=== PATIENT | female | born 1975 | race Caucasian/White ===

== ENCOUNTER 2017-08-29 13:08 | Day surgery (SDC) | payer OTHER ==
[~2017-08-29] VITALS: Ht 167.6 cm; Wt 93.3 kg
[~2017-08-29 13:08] MED LIST: BUDE6HFA INH; GABA-526 PO; GEMF600T60 PO; LISI10TA2 PO; METF500T4 PO; OMEP20CA16 PO; OXYC15TA PO
[2017-08-29 13:31] VITALS: Ht 167.6 cm; Wt 93.3 kg
[2017-08-29 14:05] VITALS: BP 137/78; PULSE 56; RESP 17
[2017-08-29] MEDS ORDERED: MIDAZOLAM 1 MG/ML 2 ML INJ ONE (14:57)
[2017-08-29] MEDS ORDERED: FENTAnyl 50 MCG/ML VIAL ONE (14:57)
[2017-08-29] MEDS ORDERED: PROPOFOL 20 ML ONE ×2 (14:57→16:18)
--- NOTE | 2017-08-29 15:46 | SIPON ---
Date/Time of Note Date/Time of Note DATE: 08/29/17 TIME: 15:45 Operative Report Preoperative Diagnosis Blood per rectum Postoperative Diagnosis Blood per rectum Operation/Procedure Performed Colonoscopy Surgeon Dean signature line office administrative assistant v Anesthesia: MAC Estimated blood loss: none Transfusion Required none Specimen None Grafts/Implants none Complications none YOVANI VALENTINE M.D. Aug 29, 2017 15:46
--- NOTE | 2017-08-29 15:46 | SIPON ---
Date/Time of Note Date/Time of Note DATE: 08/29/17 TIME: 15:45 Operative Report Preoperative Diagnosis Blood per rectum Postoperative Diagnosis Blood per rectum Operation/Procedure Performed Colonoscopy Surgeon Dean signature line internal medicine physician assistant v Anesthesia: MAC Estimated blood loss: none Transfusion Required none Specimen None Grafts/Implants none Complications none YOVANI VALENTINE M.D. Aug 29, 2017 15:46
--- NOTE | 2017-08-29 15:46 | SIPON ---
Date/Time of Note Date/Time of Note DATE: 08/29/17 TIME: 15:45 Operative Report Preoperative Diagnosis Blood per rectum Postoperative Diagnosis Blood per rectum Operation/Procedure Performed Colonoscopy Surgeon Dean signature line dental assisting instructor v Anesthesia: MAC Estimated blood loss: none Transfusion Required none Specimen None Grafts/Implants none Complications none YOVANI VALENTINE M.D. Aug 29, 2017 15:46
[2017-08-29 16:10] VITALS: BP 156/96; RESP 14
--- NOTE | 2017-08-29 17:18 | OPR ---
DATE OF OPERATION: 08/29/2017 OPERATION PERFORMED: Colonoscopy. PREOPERATIVE DIAGNOSIS: Blood per rectum. POSTOPERATIVE DIAGNOSIS: Blood per rectum. SURGEON: Carlos Kwan MD ANESTHESIOLOGIST: Vicki Goldstein MD ANESTHESIA: MAC. POSITION: Left lateral decubitus. INDICATIONS: A 42-year-old woman who I had seen in the office for internal hemorrhoids and bleeding. Given the patient's age and symptoms, I recommended a colonoscopy. I discussed the risks and benefits, including bleeding, infection, damage to surrounding structures, perforation. Patient agreed to the procedure, and we went to the GI suite. OPERATIVE PROCEDURE: After obtaining consent, the patient was brought to the GI suite. After induction of anesthesia by the anesthesiologist, patient was gently placed in left lateral decubitus position. The pressure points were carefully padded. I did a digital rectal exam, which was unremarkable. I then placed a lubricated Olympus colonoscope in the patient's anus and navigated it carefully to the patient's cecum. The cecum was identified by the appendiceal orifice and the ileocecal valve. The prep was unsatisfactory, as I found it safe to get to the cecum. On retraction, there were multiple large stools and pools of green fluid. Despite suction and irrigation, I could not see the entirety of the colon. However, there were no obvious lesions seen. The scope was removed, and the procedure was terminated. The patient tolerated the procedure well. The patient was transferred to the recovery room in good condition. I will see patient in office regarding followup colonoscopy with a different prep. Dictated By: Carlos Kwan MD /[email or web address] /Document#: [id number]
== END 2017-08-29 16:18 | disposition home or self-care (01) ==
LOC: GIL 13:08
PROVIDERS: ATTEND Surgery
DX: K62.5 Hemorrhage of anus and rectum (principal); E78.5 Hyperlipidemia, unspecified; E11.9 Type 2 diabetes mellitus without complications; I10 Essential (primary) hypertension; Z88.1 Allergy status to other antibiotic agents
CPT/HCPCS: 45378; 82962; 84703; J2250; J3010; Z7610

== ENCOUNTER 2017-12-21 12:39 | Day surgery (SDC) | END 2017-12-21 15:15 | disposition home or self-care (01) ==

== ENCOUNTER 2018-11-08 11:20 | Day surgery (SDC) | payer OTHER ==
[~2018-11-08] VITALS: Ht 157.5 cm; Wt 98.4 kg
[~2018-11-08 11:20] MED LIST changes: -GABA-526 PO; -GEMF600T60 PO; +GEMF600T8 PO; +METF500T24 PO; -METF500T4 PO
[2018-11-08 12:28] VITALS: Ht 157.5 cm; Wt 98.4 kg
--- NOTE | 2018-11-08 12:47 | PREAC ---
Date/Time of Note Date/Time of Note DATE: 11/08/18 TIME: 12:46 Anesthesia Eval and Record Evaluation Time Pre-Procedure Interview DATE: 11/08/18 TIME: 12:46 Age 43 Sex female NPO: 8 hrs Preoperative diagnosis GERD Planned procedure EGD Past Medical History Past Medical History: Includes Cardio: HTN Endo: Diabetes Pulm: Asthma Surgery & Anesthesia Issues No known issue Meds Anticoagulation: No Beta Uli within 24 hr: No Reason Beta Uli not given: Pt. not on B-Uli Reported Medications Budesonide-Formoterol Fumarate* (Symbicort*) 160-4.5 Hfa.aer.ad, 1 PUFF INH PRN for SHORTNESS OF BREATH, #10 08/30/16 Omeprazole* (Omeprazole*) 20 Mg Capsule.dr, 20 MG PO DAILY, #30 CAP 05/10/16 Oxycodone Hcl* (IR) (Oxycodone Hcl*) 15 Mg Tablet, 15 MG PO Q8H PRN for PAIN, TAB 05/09/16 Gemfibrozil* (Gemfibrozil*) 600 Mg Tablet, 600 MG PO BID, TAB 06/23/15 Metformin Hcl* (Metformin Hcl*) 500 Mg Tablet, 500 MG PO WITH BREAKFAST, TAB 06/23/15 Lisinopril* (Lisinopril*) 10 Mg Tablet, 10 MG PO DAILY, TAB 06/23/15 Meds reviewed: Yes Allergies Coded Allergies: carisoprodol (Verified Allergy, Unknown, 12/21/17) clindamycin (Verified Allergy, Unknown, 12/21/17) vancomycin (Verified Allergy, Unknown, 12/21/17) Allergies Reviewed: Yes Labs/Studies Labs Reviewed: Reviewed by anesthesiologist test: Negative Studies: ECG (n/a), CXR (n/a) Pre-procedure Exam Airway: Adequate mouth opening Mallampati: Mallampati I Teeth: Normal Lung: Normal Heart: Normal ASA Physical Status ASA physical status: 2 Emergency: None Planned Anesthetic General/MAC: MAC Planned Pain Management Parenteral pain med Pre-operative Attestations Prior to commencing anesthesia and surgery, the patient was re-evaluated, there was verification of: *The patient's identity *The results of appropriate recent lab work and preoperative vital signs *The above evaluation not changing prior to induction *Anesthetic plan, risk benefits, alternative and complications discussed with patient/family; questions answered; patient/family understands, accepts and wishes to proceed. JG DEUTSCH MD Nov 08, 2018 12:47
[2018-11-08] MEDS ORDERED: PROPOFOL 20 ML ONE (13:00)
[2018-11-08] MEDS ORDERED: FENTAnyl 50 MCG/ML VIAL ONE (13:00)
[2018-11-08 13:53] VITALS: BP 129/74; RESP 14
--- NOTE | 2018-11-08 17:13 | PAC ---
Date/Time of Note Date/Time of Note DATE: 11/08/18 TIME: 17:13 Post-Anesthesia Notes Post-Anesthesia Note Last documented vital signs Vital Signs Date Temp Pulse Resp B/P (MAP) Pulse Ox O2 O2 Flow FiO2 Time Delivery Rate 11/08/18 98 74 14 129/74 97 Room Air 13:53 (92) Activity: WNL Respiratory function: WNL Cardiovascular function: WNL Mental status: Baseline Pain reasonably controlled: Yes Hydration appropriate: Yes Nausea/Vomiting absent: No JG DEUTSCH MD Nov 08, 2018 17:13
== END 2018-11-08 15:18 | disposition home or self-care (01) ==
LOC: GIL 11:20
PROVIDERS: ATTEND Internal Medicine Gastroenterology
DX: K44.9 Diaphragmatic hernia without obstruction or gangrene (principal); K21.9 Gastro-esophageal reflux disease without esophagitis; I10 Essential (primary) hypertension; E11.9 Type 2 diabetes mellitus without complications; J45.909 Unspecified asthma, uncomplicated
CPT/HCPCS: 43239; 82962; 84703; 88305; J3010; Z7610

== ENCOUNTER 2019-05-08 08:54 | Inpatient (IN) | payer OTHER ==
[~2019-05-08] VITALS: Ht 160 cm; Wt 101.5 kg
[2019-05-08] VITALS (40 sets, daily range): BP systolic 119–161; BP diastolic 65–120; PULSE 72–112; RESP 11–28; Ht 160 cm; Wt 101.5 kg
[~2019-05-08 08:54] MED LIST changes: +CEFAZOLIN 2 GM/50 ML (PMX) 50 ML IVPB ONE; +CEFAZOLIN 2 GM/50 ML (PMX) 50 ML IVPB SCH
[2019-05-08] MEDS ORDERED: METF500T24 PO (09:43)
[2019-05-08] MEDS ORDERED: LISI10TA2 PO (09:43)
[2019-05-08] MEDS ORDERED: OMEP20CA16 PO (09:44)
[2019-05-08] MEDS ORDERED: GEMF600T8 PO (09:44)
[2019-05-08] MEDS ORDERED: OXYC15TA PO (09:45)
[2019-05-08] MEDS ORDERED: NORE0.35 PO (09:46)
[2019-05-08] MEDS ORDERED: ROCURONIUM 50 MG INJ ONE (10:50)
[2019-05-08] MEDS ORDERED: GLYCOPYRROLATE 0.4 MG INJ ONE (10:50)
[2019-05-08] MEDS ORDERED: PROPOFOL 20 ML ONE (10:51)
[2019-05-08] MEDS ORDERED: DEXAMETHASONE 4 MG/ML 5 ML INJ ONE (10:51)
[2019-05-08] MEDS ORDERED: ONDANSETRON 4 MG INJ ONE (10:51)
[2019-05-08] MEDS ORDERED: FENTAnyl 50 MCG/ML VIAL ONE ×3 (10:51→16:02)
[2019-05-08] MEDS ORDERED: MIDAZOLAM 1 MG/ML 2 ML INJ ONE ×2 (10:51→16:26)
[2019-05-08] MEDS ORDERED: CEFAZOLIN 1 GM INJ ONE (10:51)
[2019-05-08] MEDS ORDERED: NEOSTIGMINE 3 MG/3 ML SYRINGE ONE (10:51)
[2019-05-08] MEDS ORDERED: SOD CHLORIDE 0.9% 1,000 ML IV SCH (11:00)
--- NOTE | 2019-05-08 11:28 | PREAC ---
Date/Time of Note Date/Time of Note DATE: 05/08/19 TIME: 11:26 Anesthesia Eval and Record Evaluation Time Pre-Procedure Interview DATE: 05/08/19 TIME: 11:26 Age 44 Sex female NPO: 8 hrs Preoperative diagnosis mechanical low back pain Planned procedure l5-s1 instrumented fusion Past Medical History Past Medical History: Includes Cardio: HTN, Dyslipidemia Endo: Diabetes GI: Morbid obesity Surgery & Anesthesia Issues No known issue Meds Anticoagulation: No Beta Uli within 24 hr: No Reason Beta Uli not given: Pt. not on B-Uli Reported Medications Norethindrone (Norethindrone) 0.35 Mg Tablet, 0.35 MG PO DAILY, TAB PT BROUGHT HER OWN 05/08/19 Oxycodone Hcl* (IR) (Oxycodone Hcl*) 15 Mg Tablet, 15 MG PO QID PRN for PAIN, TAB 05/08/19 Omeprazole* (Omeprazole*) 20 Mg Capsule.dr, 20 MG PO DAILY, #30 CAP 05/08/19 Gemfibrozil* (Gemfibrozil*) 600 Mg Tablet, 600 MG PO QAM, TAB 05/08/19 Metformin Hcl* (Metformin Hcl*) 500 Mg Tablet, 500 MG PO WITH BREAKFAST, #30 TAB 05/08/19 Lisinopril* (Lisinopril*) 10 Mg Tablet, 10 MG PO DAILY, #30 TAB 05/08/19 Discontinued Reported Medications Budesonide-Formoterol Fumarate* (Symbicort*) 160-4.5 Hfa.aer.ad, 1 PUFF INH PRN for SHORTNESS OF BREATH, #10 08/30/16 Omeprazole* (Omeprazole*) 20 Mg Capsule.dr, 20 MG PO DAILY, #30 CAP 05/10/16 Oxycodone Hcl* (IR) (Oxycodone Hcl*) 15 Mg Tablet, 15 MG PO Q8H PRN for PAIN, TAB 05/09/16 Gemfibrozil* (Gemfibrozil*) 600 Mg Tablet, 600 MG PO BID, TAB 06/23/15 Metformin Hcl* (Metformin Hcl*) 500 Mg Tablet, 500 MG PO WITH BREAKFAST, TAB 06/23/15 Lisinopril* (Lisinopril*) 10 Mg Tablet, 10 MG PO DAILY, TAB 06/23/15 Current Medications Cefazolin Sodium/ Dextrose 50 ml @ 100 mls/hr PRE-OP IVPB ; Start 05/08/19 at 06:00; Stop 05/08/19 at 19:00 Sodium Chloride 1,000 ml @ 0 mls/hr Q0M IV ; Start 05/08/19 at 11:00 Meds reviewed: Yes Allergies Coded Allergies: carisoprodol (Verified Allergy, Unknown, 05/08/19) clindamycin (Verified Allergy, Unknown, 05/08/19) vancomycin (Verified Allergy, Unknown, 05/08/19) Allergies Reviewed: Yes Labs/Studies Labs Reviewed: Reviewed by anesthesiologist Blood Bank Test 05/08/19 09:19 Blood Product Summary Counts test: Negative Studies: ECG (sinus shilpi), CXR (napd) Pre-procedure Exam Last vitals Vital Signs Date Temp Pulse Resp B/P (MAP) Pulse Ox O2 O2 Flow FiO2 Time Delivery Rate 05/08/19 97.9 80 16 119/65 97 Room Air 10:46 (83) Airway: Adequate mouth opening, Adequate thyromental dist Mallampati: Mallampati II Teeth: Normal Lung: Normal Heart: Normal ASA Physical Status ASA physical status: 3 Emergency: None Planned Anesthetic General/MAC: ETT Planned Pain Management Parenteral pain med Pre-operative Attestations Prior to commencing anesthesia and surgery, the patient was re-evaluated, there was verification of: *The patient's identity *The results of appropriate recent lab work and preoperative vital signs *The above evaluation not changing prior to induction *Anesthetic plan, risk benefits, alternative and complications discussed with patient/family; questions answered; patient/family understands, accepts and wishes to proceed. Ferny Rose M.D. May 08, 2019 11:28
[2019-05-08] MEDS ORDERED: FENTAnyl 50 MCG/ML VIAL IV PRN ×2 (11:30)
[2019-05-08] MEDS ORDERED: MEPERIDINE 25 MG INJ IV PRN (11:30)
[2019-05-08] MEDS ORDERED: IPRATROPIUM (NEB) 0.5 MG/2.5 ML AMP HHN PRN (11:30)
[2019-05-08] MEDS ORDERED: LABETALOL HCL 20MG INJ IV PRN (11:30)
[2019-05-08] MEDS ORDERED: EPHEDrine 25 MG/5 ML SYG IV PRN (11:30)
[2019-05-08] MEDS ORDERED: ONDANSETRON 4 MG INJ IV PRN (11:30)
[2019-05-08] MEDS ORDERED: MIDAZOLAM 1 MG/ML 2 ML INJ IV PRN (11:30)
[2019-05-08] MEDS ORDERED: TRIMETHOBENZAMIDE 100 MG/ML VIAL IM PRN (11:30)
[2019-05-08] MEDS ORDERED: DIPHENHYDRAMINE 50 MG INJ IV PRN ×2 (11:30→13:00)
[2019-05-08] MEDS ORDERED: HYDROmorphONE 1 MG/5 ML IV SYRINGE IV PRN ×3 (11:30)
[2019-05-08] MEDS ORDERED: OXYCODONE/ACETAMINOPHEN (5/325) TAB PO PRN ×2 (11:30)
[2019-05-08] MEDS ORDERED: hydrALAzine 20 MG INJ IV PRN (11:30)
[2019-05-08] MEDS ORDERED: ALBUTEROL 0.083% (NEB) 2.5 MG/3 ML AMP HHN PRN (11:30)
[2019-05-08] MEDS ORDERED: POLYMYXIN/BACITRACIN 1L IRRIG ONE (11:39)
[2019-05-08] MEDS ORDERED: BUPIVACAINE 0.5% (SDV) 30 ML INJ ONE (11:40)
[2019-05-08] MEDS ORDERED: SURGIFOAM POWDER 1 GM KIT ONE (11:40)
[2019-05-08] MEDS ORDERED: BUPIVACAINE 0.25%/EPI (SDV) 30 ML INJ ONE (11:40)
[2019-05-08] MEDS ORDERED: CA CHLORIDE 10% 10 ML SYRINGE ONE ×2 (11:41→14:51)
[2019-05-08] MEDS ORDERED: BUPIVACAINE 0.25% (MPF) 30 ML INJ ONE (11:44)
[2019-05-08] MEDS ORDERED: morphine 2 MG INJ IV STA ×2 (12:03→12:32)
--- NOTE | 2019-05-08 12:40 | HPN ---
Date/Time of Note Date/Time of Note DATE: 05/08/19 TIME: 12:40 Interval H&P Admission Note Pt. seen H&P reviewed: No system changes ANA CHAVEZ MD May 08, 2019 12:40
[2019-05-08] MEDS ORDERED: DIPHENHYDRAMINE 25 MG CAP PO PRN (13:00)
[2019-05-08] MEDS ORDERED: NALOXONE (0.4 MG/ML) INJ IV PRN (13:00)
[2019-05-08] MEDS ORDERED: HYDROCODONE/APAP (5/325) TAB PO PRN ×2 (13:00)
[2019-05-08] MEDS ORDERED: morphine 2 MG INJ IV PRN (13:00)
[2019-05-08] MEDS ORDERED: PROCHLORPERAZINE 10 MG TAB PO PRN (13:00)
[2019-05-08] MEDS ORDERED: CEPASTAT LOZENGE MT PRN (13:00)
[2019-05-08] MEDS ORDERED: ACETAMINOPHEN 325 MG TAB PO PRN (13:00)
[2019-05-08] MEDS ORDERED: BUPIVACAINE 0.25%/EPI (SDV) 30 ML INJ INJ ONE (13:56)
--- NOTE | 2019-05-08 15:30 | SIPON ---
Date/Time of Note Date/Time of Note DATE: 05/08/19 TIME: 15:21 conf#[id number] Operative Report Preoperative Diagnosis s/p right L5-S1 discectomy, 2015 L5-S1 deg disc disease and stenosis Left leg radiculopathy Postoperative Diagnosis same Operation/Procedure Performed L5-S1 revision decompression with instrumented fusion Surgeon see signature line medical assistant float Juany Rg, AKHIL Anesthesia: general Estimated blood loss: 50 - 100 ml's Transfusion Required none Specimen L5-S1 disc Grafts/Implants Spineway pedicle screws NEXXT apine INterbody cage Bone graft NuShiled PRP Complications none ANA CHAVEZ MD May 08, 2019 15:30
--- NOTE | 2019-05-08 15:36 | PAC ---
Date/Time of Note Date/Time of Note DATE: 05/08/19 TIME: 15:36 Post-Anesthesia Notes Post-Anesthesia Note Last documented vital signs Vital Signs Date Temp Pulse Resp B/P (MAP) Pulse Ox O2 O2 Flow FiO2 Time Delivery Rate 05/08/19 97.9 80 16 119/65 97 Room Air 10:46 (83) Activity: WNL Respiratory function: WNL Cardiovascular function: WNL Mental status: Baseline Pain reasonably controlled: Yes Hydration appropriate: Yes Nausea/Vomiting absent: Yes PARDEEP KILLIAN May 08, 2019 15:36
[2019-05-08] MEDS: FENTAnyl 50 MCG/ML VIAL IV PRN ×2 (15:45→16:47)
[2019-05-08] MEDS ORDERED: HYDROmorphONE 1 MG/5 ML IV SYRINGE IV ONE (16:25)
--- NOTE | 2019-05-08 16:28 | CONS ---
Assessment/Plan Assessment/Plan Hospital Course (Demo Recall) 44 yo female with ho hypertension and lumbago who is s/p L5-S1 revision decompression with instrumented fusion. We have been asked to follow along for medication co-management - Ok to continue her home medications through the post-operative period - Post-operative management otherwise per neurosurgery - DVT ppx - Pain control - PT/OT - Diet as tolerated Consultation Date/Type/Reason Admit Date/Time May 08, 2019 at 08:54 Date/Time of Note DATE: 05/08/19 TIME: 16:25 Hx of Present Illness 44 yo female POD0 for L5-S1 revision decompression with instrumented fusion We have been asked to provide medical co-management Patient currently in PACU, appears sedated but still complains of severe pain. Requesting addtional analgesia Not able to further asses medical problems at this time Constitutional: no complaints, improved Eyes: no complaints ENT: no complaints Respiratory: no complaints Cardiovascular: no complaints Gastrointestinal: no complaints Genitourinary: no complaints Musculoskeletal: no complaints Skin: no complaints Neurologic: no complaints Endocrine: no complaints Lymphatic: no complaints Psychological: no complaints, nl mood/affect Immunologic: no complaints Past Medical History Medical History: no pertinent history Home Meds Reported Medications Norethindrone (Norethindrone) 0.35 Mg Tablet, 0.35 MG PO DAILY, TAB PT BROUGHT HER OWN 05/08/19 Oxycodone Hcl* (IR) (Oxycodone Hcl*) 15 Mg Tablet, 15 MG PO QID PRN for PAIN, TAB 05/08/19 Omeprazole* (Omeprazole*) 20 Mg Capsule.dr, 20 MG PO DAILY, #30 CAP 05/08/19 Gemfibrozil* (Gemfibrozil*) 600 Mg Tablet, 600 MG PO QAM, TAB 05/08/19 Metformin Hcl* (Metformin Hcl*) 500 Mg Tablet, 500 MG PO WITH BREAKFAST, #30 TAB 05/08/19 Lisinopril* (Lisinopril*) 10 Mg Tablet, 10 MG PO DAILY, #30 TAB 05/08/19 Discontinued Reported Medications Budesonide-Formoterol Fumarate* (Symbicort*) 160-4.5 Hfa.aer.ad, 1 PUFF INH PRN for SHORTNESS OF BREATH, #10 08/30/16 Omeprazole* (Omeprazole*) 20 Mg Capsule.dr, 20 MG PO DAILY, #30 CAP 05/10/16 Oxycodone Hcl* (IR) (Oxycodone Hcl*) 15 Mg Tablet, 15 MG PO Q8H PRN for PAIN, TAB 05/09/16 Gemfibrozil* (Gemfibrozil*) 600 Mg Tablet, 600 MG PO BID, TAB 06/23/15 Metformin Hcl* (Metformin Hcl*) 500 Mg Tablet, 500 MG PO WITH BREAKFAST, TAB 06/23/15 Lisinopril* (Lisinopril*) 10 Mg Tablet, 10 MG PO DAILY, TAB 06/23/15 Medications Current Medications Cefazolin Sodium/ Dextrose 50 ml @ 100 mls/hr PRE-OP IVPB ; Start 05/08/19 at 06:00; Stop 05/08/19 at 19:00 Sodium Chloride 1,000 ml @ 0 mls/hr Q0M IV ; Start 05/08/19 at 11:00 Acetaminophen/ Hydrocodone Bitart ([place] (5/325)) 1 tab Q4H PRN PO .PAIN 1-5; Start 05/08/19 at 13:00 Acetaminophen/ Hydrocodone Bitart ([place] (5/325)) 2 tab Q4H PRN PO .PAIN 6-10; Start 05/08/19 at 13:00 Morphine Sulfate (morphine) 1 mg Q3 PRN IV .BREAKTHROUGH PAIN; Start 05/08/19 at 13:00 Cefazolin Sodium 50 ml @ 100 mls/hr Q8H IVPB ; Start 05/08/19 at 19:00; Stop 05/09/19 at 11:29 Ondansetron HCl (Zofran Inj) 4 mg Q6H PRN IV NAUSEA/VOMITING; Start 05/08/19 at 13:00 Prochlorperazine (Compazine) 10 mg Q6H PRN PO NAUSEA/VOMITING; Start 05/08/19 at 13:00 Docusate Sodium (Colace) 100 mg BID PO ; Start 05/08/19 at 21:00 Pantoprazole (Protonix Tab) 40 mg DAILY@06 PO ; Start 05/09/19 at 06:00 Acetaminophen (Tylenol Tab) 650 mg Q4H PRN PO CASTILLO OR TEMP GREATER THAN 101.3F; Start 05/08/19 at 13:00 Cyclobenzaprine HCl (Flexeril) 10 mg TID PRN PO .MUSCLE SPASMS; Start 05/08/19 at 13:00 Phenol (Cepastat Lozenge) 1 lozenge PRN PRN MT .SORE THROAT; Start 05/08/19 at 13:00 Diphenhydramine HCl (Benadryl) 25 mg Q6H PRN PO .ITCHING; Start 05/08/19 at 13:00 Diphenhydramine HCl (Benadryl) 25 mg Q6H PRN IV .ITCHING; Start 05/08/19 at 13:00 Naloxone HCl (Narcan) 0.2 mg Q2M PRN IV .RR 8 BREATHS/MIN OR LESS; Start 05/08/19 at 13:00 Allergies: Coded Allergies: carisoprodol (Verified Allergy, Unknown, 05/08/19) clindamycin (Verified Allergy, Unknown, 05/08/19) vancomycin (Verified Allergy, Unknown, 05/08/19) Past Surgical History Past Surgical Hx: no surgical history Social History Alcohol Use: none Smoking Status: Never smoker Drug Use: none Exam/Review of Systems Exam Vitals Vital Signs Date Temp Pulse Resp B/P (MAP) Pulse Ox O2 O2 Flow FiO2 Time Delivery Rate 05/08/19 74 12 158/85 100 Nasal 2.0 16:12 (109) Cannula 05/08/19 98.6 15:32 Constitutional: alert, oriented, well developed Psych: no complaints, nl mood/affect Head: normocephalic, atraumatic Eyes: nl conjunctiva, EOMI, nl lids, nl sclera, PERRL ENMT: nl external ears & nose, nl lips & teeth, nl nasal mucosa & septum Neck: supple, non-tender Respiratory: clear to auscultation, normal air movement Cardiovascular: regular rate and rhythm, nl pulses Gastrointestinal: soft, nl liver, spleen, non-tender Musculoskeletal: nl extremities to inspection, nl gait and stance Extremities: normal pulses Neurological: [employer]ILRO[employer]ER II-XII intact, nl mental status, nl speech, nl strength Skin: nl turgor; No rash or lesions Lymph: nl lymph nodes Results Results 24hrs Laboratory Tests Test 05/08/19 10:10 05/08/19 12:42 Bedside Glucose 128 99 Medications Medication Current Medications Cefazolin Sodium/ Dextrose 50 ml @ 100 mls/hr PRE-OP IVPB ; Start 05/08/19 at 06:00; Stop 05/08/19 at 19:00 Sodium Chloride 1,000 ml @ 0 mls/hr Q0M IV ; Start 05/08/19 at 11:00 Acetaminophen/ Hydrocodone Bitart ([place] (5/325)) 1 tab Q4H PRN PO .PAIN 1-5; Start 05/08/19 at 13:00 Acetaminophen/ Hydrocodone Bitart ([place] (5/325)) 2 tab Q4H PRN PO .PAIN 6-10; Start 05/08/19 at 13:00 Morphine Sulfate (morphine) 1 mg Q3 PRN IV .BREAKTHROUGH PAIN; Start 05/08/19 at 13:00 Cefazolin Sodium 50 ml @ 100 mls/hr Q8H IVPB ; Start 05/08/19 at 19:00; Stop 05/09/19 at 11:29 Ondansetron HCl (Zofran Inj) 4 mg Q6H PRN IV NAUSEA/VOMITING; Start 05/08/19 at 13:00 Prochlorperazine (Compazine) 10 mg Q6H PRN PO NAUSEA/VOMITING; Start 05/08/19 at 13:00 Docusate Sodium (Colace) 100 mg BID PO ; Start 05/08/19 at 21:00 Pantoprazole (Protonix Tab) 40 mg DAILY@06 PO ; Start 05/09/19 at 06:00 Acetaminophen (Tylenol Tab) 650 mg Q4H PRN PO CASTILLO OR TEMP GREATER THAN 101.3F; Start 05/08/19 at 13:00 Cyclobenzaprine HCl (Flexeril) 10 mg TID PRN PO .MUSCLE SPASMS; Start 05/08/19 at 13:00 Phenol (Cepastat Lozenge) 1 lozenge PRN PRN MT .SORE THROAT; Start 05/08/19 at 13:00 Diphenhydramine HCl (Benadryl) 25 mg Q6H PRN PO .ITCHING; Start 05/08/19 at 13:00 Diphenhydramine HCl (Benadryl) 25 mg Q6H PRN IV .ITCHING; Start 05/08/19 at 13:00 Naloxone HCl (Narcan) 0.2 mg Q2M PRN IV .RR 8 BREATHS/MIN OR LESS; Start 05/08/19 at 13:00 SATISH SNYDER MD May 08, 2019 16:28
[2019-05-08] MEDS ORDERED: HYDROmorphONE 1 MG/ML SYG ONE (17:02)
[2019-05-08] MEDS ORDERED: HYDROmorphONE 1 MG/ML SYG IV ONE (17:30)
[2019-05-08] MEDS: HYDROmorphONE 0.2 MG/ML PCA IV SCH ×2 (17:44→21:57)
--- NOTE | 2019-05-08 18:18 | OPR ---
DATE OF OPERATION: 05/08/2019 PREOPERATIVE DIAGNOSES: 1. Status post right L5-S1 microdiskectomy with decompression with recurrent stenosis. 2. Degenerative disk disease with back pain and left lower extremity radiating pain. POSTOPERATIVE DIAGNOSES: 1. Status post right L5-S1 microdiskectomy with decompression with recurrent stenosis. 2. Degenerative disk disease with back pain and left lower extremity radiating pain. OPERATION PERFORMED: 1. Revision decompression at the L5-S1 level. 2. Placement of pedicle screws at L5 and S1 bilaterally under biplanar fluoroscopy. 3. Decompression of the left L5-S1 above and beyond the need for fusion for the purpose of decompression as well. This was done by full facetectomy and foraminotomy. 4. Placement of interbody biomechanical device inside the L5-S1 level after complete diskectomy and preparation of endplates. 5. Decompression of the exiting L5 and traversing S1 nerve root. 6. Placement of bone graft into bilateral posterolateral gutters after high speed bur decortication. 7. Use of intraoperative microscope for microsurgical technique and microdissection. 8. Use of intraoperative fluoroscopy for localization and placement of instrumentation. 9. Use of intraoperative neuromonitoring. 10. Placement of epidural catheter for postop pain control and analgesia in the form of injection of 4 mL of 0.25% Marcaine and 100 mcg fentanyl. 11. Cosmetic wound closure of two 3 cm incisions. 12. Increased complexity secondary revision nature of surgery adding 1 hour to surgery to minimize risk of CSF nerve root injury which did not occur during the procedure. SURGEON: Milo Veloz MD GEOTHERMAL POWERPLANT MECHANIC: Conor Rg NP TYPE OF ANESTHESIA: General. ANESTHESIOLOGIST: Ferny Rose MD ESTIMATED BLOOD LOSS: Approximately 50 mL. TRANSFUSIONS: None. SPECIMENS: Disk material from the L5-S1 level. GRAFTS/IMPLANTS: Interbody cage at L5-S1 with pedicle screws and rods as well as NuShield and platelet-rich plasma. COMPLICATIONS: None. BRIEF PREOPERATIVE HISTORY: The patient is a healthy 44-year-old female who previously in 2014 underwent a right-sided L5-S1 microdiskectomy. The patient did well subsequently, but started to develop degenerative disk disease and back pain as well as left lower extremity radiating symptoms. She was imaged and demonstrated findings of nerve root compression as well as stenosis. The patient failed conservative management indicated for surgery as stated above. OPERATION IN DETAIL: The patient was brought to the operating room, placed under anesthesia by Dr. Rose and given 2 grams of Ancef. The patient turned prone on Iban frame and all bony prominences were thoroughly padded. Lumbar spine prepped and draped in the usual sterile fashion and two C-arms were brought into the field for biplanar fluoroscopy for placement of pedicle screws. This was done sequentially with Jamshidi needles and wires and then the right side the screws measuring 6.5 x 40 mm were placed on to the right L5 and S1. The left side was left with wire so that we could perform our decompression and placement of the interbody cage under minimally invasive fashion. We started with a decompression on the L5-S1 level on the left side by removing and performing a complete facetectomy and foraminotomy and identifying the disk space. Once this was done, it was appropriately prepped for the endplates and the disk material removed and we sized an 8 mm cage which was inserted with anterior placement of bone graft within the disk space in front of the cage and then the cage was inserted and verified proper position on lateral views. Once completed with placement of interbody cage, we placed bone graft on bilateral posterolateral gutters after high speed bur decortication. We placed the epidural catheter in the epidural space, injected 4 mL of 0.25% Marcaine, 100 mcg fentanyl and removed the catheter. Once concluded, we started with placement of our pedicle screws on the left side measuring again 40 x 6.5 mm and then placing 40 mm prelordotic rods into both pedicle screws and then securing them down with end caps and into proper torque. Once concluded, we removed the extension towers, took final images in the AP and lateral projection and verified proper placement. Increased complexity of the surgical procedure due to revision nature of surgery. The patient had extensive scar tissue and we added 1 hour to surgical procedure to avoid CSF leak or nerve root injury. The operation was completed without any complications. The patient's instruments, sponge counts and needles were correct at the conclusion of the procedure. The patient will be admitted for postop pain control, physical therapy, antibiotics, and discharged home when appropriate. Dictated By: MILO THOMPSON/JUAN Conf#: [id number] DID#: [id number] CC: CONOR GR SCREENER PERFUMER;*EndCC* MTDD
[2019-05-08] MEDS: CEFAZOLIN 1 GM/50 ML (PMX) 50 ML IVPB SCH (18:26)
[2019-05-08] MEDS: CYCLOBENZAPRINE 10 MG TAB PO PRN (18:33)
[2019-05-08] MEDS: DOCUSATE SODIUM 100 MG CAP PO SCH (21:36)
[2019-05-09] VITALS: BP 155/85; PULSE 84; RESP 18
[2019-05-09] MEDS: CEFAZOLIN 1 GM/50 ML (PMX) 50 ML IVPB SCH ×2 (02:29→10:24)
[2019-05-09] MEDS: PANTOPRAZOLE (EC) 40 MG TAB PO SCH (05:39)
[2019-05-09] MEDS: HYDROmorphONE 0.2 MG/ML PCA IV SCH ×3 (05:48→17:36)
[2019-05-09 07:10] VITALS: BP 140/86; PULSE 93; RESP 18
--- NOTE | 2019-05-09 08:01 | PN ---
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, to be weened later PT/OT today Remove appiah today SCD IS LSO brace ordered Soft corset until brace arrives Result Diagram: 05/09/19 0445 05/09/19 0445 Results 24hrs Laboratory Tests Test 05/08/19 10:10 05/08/19 12:42 05/09/19 04:45 05/09/19 06:59 Bedside Glucose 128 99 White Blood Count 14.5 H Red Blood Count 4.26 Hemoglobin 12.9 Hematocrit 38.3 Mean Corpuscular 89.9 Volume Mean Corpuscular 30.3 Hemoglobin Mean Corpuscular 33.7 Hemoglobin Concent Red Cell 12.4 Distribution Width Platelet Count 353 Mean Platelet 10.3 Volume Immature 0.600 H Granulocytes % Neutrophils % 83.6 H Lymphocytes % 7.9 L Monocytes % 7.8 Eosinophils % 0.0 Basophils % 0.1 Nucleated Red 0.0 Blood Cells % Immature 0.090 H Granulocytes # Neutrophils # 12.1 H Lymphocytes # 1.2 Monocytes # 1.1 H Eosinophils # 0.0 Basophils # 0.0 Nucleated Red 0.0 Blood Cells # Sodium Level 139 Potassium Level 4.1 Chloride Level 104 Carbon Dioxide 26 Level Anion Gap 9 Blood Urea 9 Nitrogen Creatinine 0.58 Est Glomerular > 60 Filtrat Rate mL/min Glucose Level 146 Hemoglobin A1c 5.9 Calcium Level 9.3 Magnesium Level 1.7 Lab Scanned Report REFERENCE LAB Exam/Review of Systems Exam Vitals Vital Signs Date Temp Pulse Resp B/P (MAP) Pulse Ox O2 O2 Flow FiO2 Time Delivery Rate 05/09/19 97.8 93 18 140/86 99 Nasal 07:10 (104) Cannula 05/08/19 2.0 23:45 Intake and Output 05/08/19 05/08/19 05/09/19 1515:00 23:00 07:00 IntakeIntake Total 2000 ml 50 ml 350 ml OutputOutput Total 200 ml 210 ml 1500 ml BalanceBalance 1800 ml -160 ml -1150 ml Results Results 24hrs Laboratory Tests Test 05/08/19 10:10 05/08/19 12:42 05/09/19 04:45 05/09/19 06:59 Bedside Glucose 128 99 White Blood Count 14.5 H Red Blood Count 4.26 Hemoglobin 12.9 Hematocrit 38.3 Mean Corpuscular 89.9 Volume Mean Corpuscular 30.3 Hemoglobin Mean Corpuscular 33.7 Hemoglobin Concent Red Cell 12.4 Distribution Width Platelet Count 353 Mean Platelet 10.3 Volume Immature 0.600 H Granulocytes % Neutrophils % 83.6 H Lymphocytes % 7.9 L Monocytes % 7.8 Eosinophils % 0.0 Basophils % 0.1 Nucleated Red 0.0 Blood Cells % Immature 0.090 H Granulocytes # Neutrophils # 12.1 H Lymphocytes # 1.2 Monocytes # 1.1 H Eosinophils # 0.0 Basophils # 0.0 Nucleated Red 0.0 Blood Cells # Sodium Level 139 Potassium Level 4.1 Chloride Level 104 Carbon Dioxide 26 Level Anion Gap 9 Blood Urea 9 Nitrogen Creatinine 0.58 Est Glomerular > 60 Filtrat Rate mL/min Glucose Level 146 Hemoglobin A1c 5.9 Calcium Level 9.3 Magnesium Level 1.7 Lab Scanned Report REFERENCE LAB Medications Medication Current Medications Sodium Chloride 1,000 ml @ 0 mls/hr Q0M IV ; Start 05/08/19 at 11:00 Acetaminophen/ Hydrocodone Bitart ([place] (5/325)) 1 tab Q4H PRN PO .PAIN 1-5; Start 05/08/19 at 13:00 Acetaminophen/ Hydrocodone Bitart ([place] (5/325)) 2 tab Q4H PRN PO .PAIN 6-10; Start 05/08/19 at 13:00 Morphine Sulfate (morphine) 1 mg Q3 PRN IV .BREAKTHROUGH PAIN Last administered on 05/08/19at 21:37; Admin Dose 1 MG; Start 05/08/19 at 13:00 Cefazolin Sodium 50 ml @ 100 mls/hr Q8H IVPB Last administered on 05/09/19at 02:29; Admin Dose 100 MLS/HR; Start 05/08/19 at 19:00; Stop 05/09/19 at 11:29 Ondansetron HCl (Zofran Inj) 4 mg Q6H PRN IV NAUSEA/VOMITING; Start 05/08/19 at 13:00 Prochlorperazine (Compazine) 10 mg Q6H PRN PO NAUSEA/VOMITING; Start 05/08/19 at 13:00 Docusate Sodium (Colace) 100 mg BID PO Last administered on 05/08/19at 21:36; Admin Dose 100 MG; Start 05/08/19 at 21:00 Pantoprazole (Protonix Tab) 40 mg DAILY@06 PO Last administered on 05/09/19at 05:39; Admin Dose 40 MG; Start 05/09/19 at 06:00 Acetaminophen (Tylenol Tab) 650 mg Q4H PRN PO CASTILLO OR TEMP GREATER THAN 101.3F; Start 05/08/19 at 13:00 Cyclobenzaprine HCl (Flexeril) 10 mg TID PRN PO .MUSCLE SPASMS Last administered on 05/08/19at 18:33; Admin Dose 10 MG; Start 05/08/19 at 13:00 Phenol (Cepastat Lozenge) 1 lozenge PRN PRN MT .SORE THROAT; Start 05/08/19 at 13:00 Diphenhydramine HCl (Benadryl) 25 mg Q6H PRN PO .ITCHING; Start 05/08/19 at 13:00 Diphenhydramine HCl (Benadryl) 25 mg Q6H PRN IV .ITCHING; Start 05/08/19 at 13:00 Naloxone HCl (Narcan) 0.2 mg Q2M PRN IV .RR 8 BREATHS/MIN OR LESS; Start 05/08/19 at 13:00 Gemfibrozil (Lopid) 600 mg QAM PO ; Start 05/09/19 at 09:00 Lisinopril (Zestril) 10 mg DAILY PO ; Start 05/09/19 at 09:00 Metformin HCl (Glucophage) 500 mg WITH BREAKFAST PO ; Start 05/09/19 at 07:50 Hydromorphone HCl (Dilaudid ALUM OPERATOR) 0.2 MG/HR CONTINUOUS RATE ... Q4PCA IV Last administered on 05/09/19at 05:48; Admin Dose 6 MG; Start 05/08/19 at 17:30 ANA CHAVEZ MD May 09, 2019 08:01
[2019-05-09] MEDS: DOCUSATE SODIUM 100 MG CAP PO SCH ×2 (08:40→20:25)
[2019-05-09] MEDS: metFORMIN 500 MG TAB PO SCH (08:40)
[2019-05-09] MEDS: GEMFIBROZIL 600 MG TAB PO SCH (08:40)
[2019-05-09] MEDS: LISINOPRIL 10 MG TAB PO SCH (08:41)
[2019-05-09] MEDS: ONDANSETRON 4 MG INJ IV PRN (10:24)
[2019-05-09] MEDS ORDERED: GLUCOSE GEL 15 GRAM TUBE BUCCAL PRN (13:00)
[2019-05-09] MEDS ORDERED: GLUCOSE GEL 15 GRAM TUBE PO PRN ×2 (13:00)
[2019-05-09] MEDS ORDERED: DEXTROSE 50% 50 ML SYRINGE IV PRN ×2 (13:00)
[2019-05-09] MEDS ORDERED: GLUCAGON 1 MG INJ IM PRN (13:00)
[2019-05-09 14:52] VITALS: BP 161/88; PULSE 88; RESP 18
[2019-05-09] MEDS: INSULIN ASPART [NOVOLOG] 3 ML PEN SC SCH ×2 (17:39→20:28)
[2019-05-09] MEDS ORDERED: HYDROCODONE/APAP (5/325) TAB PO ONE (19:00)
[2019-05-09 19:20] VITALS: BP 131/79; PULSE 87; RESP 20
[2019-05-09] MEDS ORDERED: HYDROmorphONE 1 MG/ML SYG IV PRN (19:30)
[2019-05-10] VITALS: BP 130/81; PULSE 91; RESP 20
[2019-05-10] MEDS: HYDROmorphONE 0.2 MG/ML PCA IV SCH (01:36)
[2019-05-10] MEDS: PANTOPRAZOLE (EC) 40 MG TAB PO SCH (05:52)
[2019-05-10] MEDS: ONDANSETRON 4 MG INJ IV PRN ×2 (06:19→12:46)
[2019-05-10] MEDS ORDERED: OXYCODONE/ACETAMINOPHEN (5/325) TAB PO PRN ×2 (07:00)
[2019-05-10 07:49] VITALS: BP 147/72; PULSE 78; RESP 19
[2019-05-10] MEDS ORDERED: OXYCODONE/ACETAMINOPHEN (5/325) TAB PO ONE (08:00)
[2019-05-10] MEDS: GEMFIBROZIL 600 MG TAB PO SCH (08:37)
[2019-05-10] MEDS: DOCUSATE SODIUM 100 MG CAP PO SCH ×2 (08:37→20:39)
[2019-05-10] MEDS: LISINOPRIL 10 MG TAB PO SCH (08:38)
[2019-05-10] MEDS: metFORMIN 500 MG TAB PO SCH (08:38)
[2019-05-10] MEDS: INSULIN ASPART [NOVOLOG] 3 ML PEN SC SCH ×4 (09:06→20:42)
[2019-05-10] MEDS: CYCLOBENZAPRINE 10 MG TAB PO PRN ×3 (09:12→21:48)
[2019-05-10] MEDS: HYDROmorphONE 0.5 MG/0.5 ML SYG IV PRN ×5 (09:13→23:31)
[2019-05-10] MEDS ORDERED: OXYCODONE/ACETAMINOPHEN (10/325) TAB PO PRN (12:30)
--- NOTE | 2019-05-10 13:13 | PN ---
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 SCD IS Percocet 10/325 for pain Pain meds Rx given to patient Dressing CDI Result Diagram: 05/09/19 0445 05/09/19 0445 Results 24hrs Laboratory Tests Test 05/09/19 17:38 05/09/19 20:27 05/10/19 08:33 05/10/19 12:27 Bedside Glucose 148 145 142 130 Exam/Review of Systems Exam Vitals Vital Signs Date Temp Pulse Resp B/P (MAP) Pulse Ox O2 O2 Flow FiO2 Time Delivery Rate 05/10/19 98.2 78 19 147/72 96 07:49 (97) 05/10/19 Room Air 00:00 05/08/19 2.0 23:45 Intake and Output 05/09/19 05/09/19 05/10/19 1515:00 23:00 07:00 IntakeIntake Total 800 ml 300 ml 1050 ml OutputOutput Total 600 ml 850 ml BalanceBalance 200 ml 300 ml 200 ml Results Results 24hrs Laboratory Tests Test 05/09/19 17:38 05/09/19 20:27 05/10/19 08:33 05/10/19 12:27 Bedside Glucose 148 145 142 130 Medications Medication Current Medications Sodium Chloride 1,000 ml @ 0 mls/hr Q0M IV ; Start 05/08/19 at 11:00 Acetaminophen/ Hydrocodone Bitart ([place] (5/325)) 1 tab Q4H PRN PO MILD PAIN LEVEL 1-3; Start 05/08/19 at 13:00 Ondansetron HCl (Zofran Inj) 4 mg Q6H PRN IV NAUSEA/VOMITING Last administered on 05/10/19at 12:46; Admin Dose 4 MG; Start 05/08/19 at 13:00 Prochlorperazine (Compazine) 10 mg Q6H PRN PO NAUSEA/VOMITING; Start 05/08/19 at 13:00 Docusate Sodium (Colace) 100 mg BID PO Last administered on 05/10/19 08:37; Admin Dose 100 MG; Start 05/08/19 at 21:00 Pantoprazole (Protonix Tab) 40 mg DAILY@06 PO Last administered on 05/10/19 05:52; Admin Dose 40 MG; Start 05/09/19 at 06:00 Acetaminophen (Tylenol Tab) 650 mg Q4H PRN PO CASTILLO OR TEMP GREATER THAN 101.3F Last administered on 05/10/19 00:40; Admin Dose 650 MG; Start 05/08/19 at 13:00 Cyclobenzaprine HCl (Flexeril) 10 mg TID PRN PO .MUSCLE SPASMS Last administered on 05/10/19 12:47; Admin Dose 10 MG; Start 05/08/19 at 13:00 Phenol (Cepastat Lozenge) 1 lozenge PRN PRN MT .SORE THROAT; Start 05/08/19 at 13:00 Diphenhydramine HCl (Benadryl) 25 mg Q6H PRN PO .ITCHING Last administered on 05/09/19 21:32; Admin Dose 25 MG; Start 05/08/19 at 13:00 Diphenhydramine HCl (Benadryl) 25 mg Q6H PRN IV .ITCHING; Start 05/08/19 at 13 :00 Naloxone HCl (Narcan) 0.2 mg Q2M PRN IV .RR 8 BREATHS/MIN OR LESS; Start 05/08/19 at 13:00 Gemfibrozil (Lopid) 600 mg QAM PO Last administered on 05/10/19 08:37; Admin Dose 600 MG; Start 05/09/19 at 09:00 Lisinopril (Zestril) 10 mg DAILY PO Last administered on 05/10/19 08:38; Admin Dose 10 MG; Start 05/09/19 at 09:00 Metformin HCl (Glucophage) 500 mg WITH BREAKFAST PO Last administered on 05/10/19 08:38; Admin Dose 500 MG; Start 05/09/19 at 07:50 Insulin Aspart (Novolog Insulin Pen) NOVOLOG *MILD* ALGORITHM WITH MEALS BEDTIME SC Last administered on 7/12/19at 09:06; Admin Dose 1 UNIT; Start 05/09/19 at 17:55 Miscellaneous Information 1 ea NOTE XX ; Start 05/09/19 at 13:00 Glucose (Glutose) 15 gm Q15M PRN PO DECREASED GLUCOSE; Start 05/09/19 at 13:00 Glucose (Glutose) 22.5 gm Q15M PRN PO DECREASED GLUCOSE; Start 05/09/19 at 13:00 Dextrose (D50w Syringe) 25 ml Q15M PRN IV DECREASED GLUCOSE; Start 05/09/19 at 13:00 Dextrose (D50w Syringe) 50 ml Q15M PRN IV DECREASED GLUCOSE; Start 05/09/19 at 13:00 Glucagon (Glucagen) 1 mg Q15M PRN IM DECREASED GLUCOSE; Start 05/09/19 at 13:00 Glucose (Glutose) 15 gm Q15M PRN BUCCAL DECREASED GLUCOSE; Start 05/09/19 at 13:00 Oxycodone/ Acetaminophen (Percocet (5/ 325)) 1 tab Q4H PRN PO MODERATE PAIN LEVEL 4-6; Start 05/10/19 at 07:00 Hydromorphone HCl (Dilaudid) 0.8 mg Q3H PRN IV BREAKTHROUGH PAIN Last administered on 05/10/19at 12:47; Admin Dose 0.8 MG; Start 05/10/19 at 07:00 Oxycodone/ Acetaminophen (Endocet (10/ 325)) 1 tab Q4H PRN PO PAIN LEVEL 6-10; Start 05/10/19 at 12:30 Oxycodone/ Acetaminophen (Endocet (10/ 325)) 2 tab Q4H PRN PO PAIN LEVEL 7-10; Start 05/10/19 at 13:30; Status ANA CASTELLANOS MD May 10, 2019 13:13
--- NOTE | 2019-05-10 13:17 | DS ---
Date/Time of Note Date/Time of Note DATE: 05/10/19 TIME: 13:16 Discharge Summary Admission/Discharge Info Admit Date/Time May 08, 2019 at 08:54 Discharge Date/Time 05/11/2019 Discharge Diagnosis s/p L5-S1 fusion Patient Condition: Good Consults hospitalist Procedures L5-S1 fusion Hx of Present Illness NIDDM, prior L5-S1 discectomy Hospital Course s/p lumbar fusion Home Meds Reported Medications Norethindrone (Norethindrone) 0.35 Mg Tablet, 0.35 MG PO DAILY, TAB PT BROUGHT HER OWN 05/08/19 Oxycodone Hcl* (IR) (Oxycodone Hcl*) 15 Mg Tablet, 15 MG PO QID PRN for PAIN, TAB 05/08/19 Omeprazole* (Omeprazole*) 20 Mg Capsule.dr, 20 MG PO DAILY, #30 CAP 05/08/19 Gemfibrozil* (Gemfibrozil*) 600 Mg Tablet, 600 MG PO QAM, TAB 05/08/19 Metformin Hcl* (Metformin Hcl*) 500 Mg Tablet, 500 MG PO WITH BREAKFAST, #30 TAB 05/08/19 Lisinopril* (Lisinopril*) 10 Mg Tablet, 10 MG PO DAILY, #30 TAB 05/08/19 Discontinued Reported Medications Budesonide-Formoterol Fumarate* (Symbicort*) 160-4.5 Hfa.aer.ad, 1 PUFF INH PRN for SHORTNESS OF BREATH, #10 08/30/16 Omeprazole* (Omeprazole*) 20 Mg Capsule.dr, 20 MG PO DAILY, #30 CAP 05/10/16 Oxycodone Hcl* (IR) (Oxycodone Hcl*) 15 Mg Tablet, 15 MG PO Q8H PRN for PAIN, TAB 05/09/16 Gemfibrozil* (Gemfibrozil*) 600 Mg Tablet, 600 MG PO BID, TAB 06/23/15 Metformin Hcl* (Metformin Hcl*) 500 Mg Tablet, 500 MG PO WITH BREAKFAST, TAB 06/23/15 Lisinopril* (Lisinopril*) 10 Mg Tablet, 10 MG PO DAILY, TAB 06/23/15 Follow-up Plan call for appt in 7-10 days Primary Care Provider [facility] Time spent on discharge: > 30 minutes Pending Labs Laboratory Tests Test 05/09/19 17:38 05/09/19 20:27 05/10/19 08:33 05/10/19 12:27 Bedside 148 145 142 130 Glucose mg/dL (70-220) mg/dL (70-220) mg/dL (70-220) mg/dL (70-220) ANA CHAVEZ MD May 10, 2019 13:17
[2019-05-10 14:00] VITALS: BP 115/70; PULSE 88; RESP 18
[2019-05-10] MEDS: OXYCODONE/ACETAMINOPHEN (10/325) TAB PO PRN ×3 (14:43→22:25)
[2019-05-10 19:10] VITALS: BP 147/84; PULSE 95; RESP 20
[2019-05-11 02:00] VITALS: BP 132/83; PULSE 75; RESP 20
[2019-05-11] MEDS: OXYCODONE/ACETAMINOPHEN (10/325) TAB PO PRN ×3 (02:33→10:45)
[2019-05-11] MEDS: HYDROmorphONE 0.5 MG/0.5 ML SYG IV PRN ×2 (04:13→13:16)
[2019-05-11] MEDS: PANTOPRAZOLE (EC) 40 MG TAB PO SCH (06:31)
[2019-05-11] MEDS: INSULIN ASPART [NOVOLOG] 3 ML PEN SC SCH ×2 (07:50→12:36)
[2019-05-11 08:25] VITALS: BP 134/68; PULSE 74; RESP 17
[2019-05-11] MEDS: DOCUSATE SODIUM 100 MG CAP PO SCH (08:27)
[2019-05-11] MEDS: GEMFIBROZIL 600 MG TAB PO SCH (08:28)
[2019-05-11] MEDS: CYCLOBENZAPRINE 10 MG TAB PO PRN (08:28)
[2019-05-11] MEDS: metFORMIN 500 MG TAB PO SCH (08:28)
[2019-05-11] MEDS: LISINOPRIL 10 MG TAB PO SCH (08:28)
[2019-05-11] MEDS: ONDANSETRON 4 MG INJ IV PRN (09:25)
== END 2019-05-11 15:15 | disposition home or self-care (01) | DRG 455 ==
LOC: REC 08:54 → MS1 18:09
PROVIDERS: ADMIT Orthopaedic Surgery Orthopaedic Surgery of the Spine; ATTEND Orthopaedic Surgery Orthopaedic Surgery of the Spine
PROC: 0SG30K1 Fusion of Lumbosacral Joint with Nonautologous Tissue Substitute, Posterior Approach, Posterior Column, Open Approach (ICD-10-PCS; 2019-05-08)
PROC: 00NY0ZZ Release Lumbar Spinal Cord, Open Approach (ICD-10-PCS; 2019-05-08)
PROC: 4A11X4G Monitoring of Peripheral Nervous Electrical Activity, Intraoperative, External Approach (ICD-10-PCS; 2019-05-08)
PROC: 0SG30AJ Fusion of Lumbosacral Joint with Interbody Fusion Device, Posterior Approach, Anterior Column, Open Approach (ICD-10-PCS; principal; 2019-05-08 11:00)
DX: M51.36 Other intervertebral disc degeneration, lumbar region (principal); M48.061 Spinal stenosis, lumbar region without neurogenic claudication; I10 Essential (primary) hypertension; E11.9 Type 2 diabetes mellitus without complications; E78.5 Hyperlipidemia, unspecified; E66.01 Morbid (severe) obesity due to excess calories; Z68.39 Body mass index [BMI] 39.0-39.9, adult
CPT/HCPCS: 72020; 72100; 80048; 82962; 83036; 83735; 84703; 85025; 86850; 86900; 86901; 86920; 86999; 87086; 97110; 97116; 97162; 97167; 97530; C1713; J0690; J1100; J1170; J1200; J1815; J2175; J2250; J2270; J2405; J2710; J3010; L0639; V2790